=== PATIENT | female | born 1950 | race Caucasian/White ===

== ENCOUNTER 2023-03-13 17:53 | Emergency (ER) | payer OTHER ==
[~2023-03-13] VITALS: Ht 157.5 cm; Wt 92.5 kg
[2023-03-13 18:20] VITALS: BP_SYST 170
[2023-03-13] MEDS ORDERED: DIPHTH,PERTUSS(ACELL),TET VAC 0.5 ML VIAL (Tdap) I.M. ONE (19:30)
[2023-03-13] MEDS ORDERED: LIDOCAINE 1% 10 MG/ML, 20 ML MDV INJ ONE (21:00)
[2023-03-13] MEDS ORDERED: BACITRACIN 1 GM OINT TP ONE (22:13)
[2023-03-13] MEDS ORDERED: CYCL10TA24 PO (22:20)
[2023-03-13] MEDS ORDERED: IBUP-1969 PO (22:20)
[2023-03-13] MEDS ORDERED: ACET-2634 PO (22:20)
[2023-03-13 22:38] VITALS: BP_SYST 154
== END 2023-03-13 22:38 | disposition home or self-care (01) ==
LOC: SED 17:53
DX: S50.852A Superficial foreign body of left forearm, initial encounter (principal); Z79.899 Other long term (current) drug therapy; W45.8XXA Other foreign body or object entering through skin, initial encounter; Y93.89 Activity, other specified; Y92.89 Other specified places as the place of occurrence of the external cause; Y99.8 Other external cause status
CPT/HCPCS: 99285; 10120; 73060; 73090; 90715; 90471; J2001